=== PATIENT | female | born 1965 | race Two or more races ===

== ENCOUNTER 2019-08-24 18:21 | Emergency (ER) | payer SELFPAY ==
[~2019-08-24] VITALS: Ht 160 cm; Wt 87.4 kg
[2019-08-24] MEDS ORDERED: ACETAMINOPHEN 325MG TABLET PO ONE (22:00)
[2019-08-24 22:42] LABS: BASOPHILS % 0.6 % (0.0-2.0); EOSINOPHILS % 3.8 % (0.0-5.0); HEMATOCRIT. 37.9 % (36.0-48.0); LYMPHOCYTES % 37.8 % (20.0-50.0); MEAN CORPUSCULAR VOLUME 84.7 fL (81.0-99.0); MEAN PLATELET VOLUME 9.6 fl (7.4-10.4); MONOCYTES % 7.8 % (2.0-8.0); PLATELET 198 x1000/uL (130-400); RED BLOOD CELL COUNT 4.47 mill/uL (4.2-5.4)
[2019-08-24 22:46] LABS: HCG SCREEN NEGATIVE
[2019-08-24 22:47] LABS: CHLORIDE 108 mEq/L (98-107); INR 1.1; PROTHROMBIN TIME 10.9 sec (9.6-11.0)
[2019-08-25 01:32] VITALS: BP 135/65
== END 2019-08-25 01:35 | disposition home or self-care (01) ==
LOC: ER 18:21
DX: H92.02 Otalgia, left ear (principal); G51.0 Bell's palsy; R29.810 Facial weakness; I49.9 Cardiac arrhythmia, unspecified
CPT/HCPCS: 36415; 84484; 84703; 93005; 99284